=== PATIENT | male | born 1985 ===

== ENCOUNTER 2022-06-25 23:34 | Inpatient (IN) ==
[2022-06-25] MEDS ORDERED: PIPERACILLIN/TAZOBACTAM 3,375 MG in SODIUM CHLORIDE 0.9% 100 ML IV STA (23:46)
[2022-06-25] MEDS ORDERED: ONDANSETRON 4 MG/2 ML VIAL IV PRN (23:50)
[2022-06-26] MEDS ORDERED: SODIUM CHLORIDE 0.9% 1,000 ML IV STA (00:02)
[2022-06-26] MEDS ORDERED: HYDROmorphone 1 MG/1 ML SYRINGE IV STA (00:02)
[2022-06-26] MEDS ORDERED: ONDANSETRON 4 MG/2 ML VIAL IV STA (00:02)
[2022-06-26] MEDS: DEXTROSE 5% NACL 0.45% 1,000 ML IV SCH ×2 (01:19→07:41)
[2022-06-26] MEDS: MORPHINE 2 MG/1 ML SYRINGE IV PRN ×3 (02:17→11:54)
[2022-06-26 06:19] LABS: Basophils % 0.2 % (0.0-0.8); Hematocrit 41.3 VOL% (42.0-52.0); Hemoglobin 14.1 GM/DL (14.0-18.0); Immature Granulocytes % 0.7 %; Immature Granulocytes Absolute 0.13 #; Lymphocytes # 1.4 10*3/uL (1.4-4.0); Lymphocytes % 7.4 % (21.2-54.2); Mean Corpuscular HGB Conc 34.1 GM/DL (32-36); Mean Corpuscular Volume 101.5 FL (87-102); Mean Platelet Volume 11.1 FL (9.6-12.0); Monocytes # 0.6 10*3/uL (0.11-0.8); Monocytes % 3.4 % (1.7-12.7); Neutrophils % 88.3 % (38.7-73.9); Platelet Count 110 T/CUMM (130-400); Red Blood Count 4.07 MC/CUMM (3.8-5.5); Red Cell Distribution Width 11.9 % (9.3-17.3); White Blood Count 18.6 T/CUMM (4-12)
[2022-06-26 06:43] LABS: Albumin 2.8 G/DL (3.4-5.0); Bilirubin,Total 1.3 MG/DL (0.20-1.00); Calcium 8.3 MG/DL (8.5-10.1); Osmolality,Calculated 267.1 MOS/KG (273-304); Potassium 3.4 MMOL/L (3.5-5.1); Total Protein 6.8 G/DL (6.4-8.2)
[2022-06-26] MEDS: PIPERACILLIN/TAZOBACTAM 3,375 MG in SODIUM CHLORIDE 0.9% 100 ML IV SCH ×3 (07:21→23:27)
[2022-06-26] MEDS ORDERED: PANTOPRAZOLE 40 MG VIAL IV SCH (09:00)
[2022-06-26] MEDS ORDERED: fentaNYL 100 MCG/2 ML VIAL ONE (12:54)
[2022-06-26] MEDS ORDERED: MIDAZOLAM 2 MG/2 ML VIAL ONE (12:54)
[2022-06-26] MEDS ORDERED: LIDOCAINE 2%/EPI 20 ML VIAL ONE (13:29)
[2022-06-26] MEDS ORDERED: BUPIVACAINE MPF 0.25% 10 ML VIAL ONE (13:29)
[2022-06-26] MEDS ORDERED: ONDANSETRON 4 MG/2 ML VIAL ONE (13:46)
[2022-06-26] MEDS ORDERED: SEVOFLURANE 1 UNIT/15 MINUTE INH ONE (13:46)
[2022-06-26] MEDS ORDERED: propofoL 200 MG/20 ML VIAL IV ONE (13:46)
[2022-06-26] MEDS ORDERED: DEXAMETHASONE 4 MG/1 ML VIAL ONE (13:46)
[2022-06-26] MEDS ORDERED: LIDOCAINE 2% 5 ML VIAL ONE (13:46)
[2022-06-26] MEDS ORDERED: ROCURONIUM 50 MG/5 ML VIAL IV ONE (13:46)
[2022-06-26] MEDS ORDERED: ACETAMINOPHEN INJ 1,000 MG/100 ML VIAL IV ONE ×2 (13:46→13:59)
[2022-06-26] MEDS ORDERED: SUCCINYLCHOLINE 200 MG/10 ML VIAL ONE (13:46)
[2022-06-26] MEDS ORDERED: LACTATED RINGERS 1,000 ML IV ONE (13:59)
[2022-06-26] MEDS ORDERED: KETOROLAC 30 MG/1 ML VIAL ONE (13:59)
[2022-06-26] MEDS ORDERED: GLYCOPYRROLATE 0.4 MG/2 ML VIAL ONE (14:08)
[2022-06-26] MEDS ORDERED: NEOSTIGMINE 10 MG/10 ML VIAL ONE (14:08)
[2022-06-26] MEDS ORDERED: ACETAMINOPHEN 325 MG TABLET PO PRN (14:18)
[2022-06-26] MEDS ORDERED: HYDROmorphone 1 MG/1 ML SYRINGE IV PRN ×3 (14:18→14:57)
[2022-06-26] MEDS ORDERED: ONDANSETRON 4 MG/2 ML VIAL IV PRN ×2 (14:18→14:57)
[2022-06-26] MEDS ORDERED: KETOROLAC 15 MG/1 ML VIAL IV PRN (14:18)
[2022-06-26] MEDS ORDERED: HYDROmorphone 1 MG/1 ML SYRINGE ONE (14:18)
[2022-06-26] MEDS ORDERED: TISSUE ADHESIVE 1 EACH APPLICATOR TOP ONE (14:21)
[2022-06-27 04:42] LABS: Basophils % 0.1 % (0.0-0.8); Hematocrit 35.8 VOL% (42.0-52.0); Immature Granulocytes % 1.4 %; Immature Granulocytes Absolute 0.24 #; Lymphocytes # 0.9 10*3/uL (1.4-4.0); Lymphocytes % 5.4 % (21.2-54.2); Mean Corpuscular HGB Conc 33.5 GM/DL (32-36); Mean Corpuscular Volume 103.5 FL (87-102); Monocytes # 0.9 10*3/uL (0.11-0.8); Monocytes % 5.4 % (1.7-12.7); Neutrophils % 87.7 % (38.7-73.9); Platelet Count 85 T/CUMM (130-400); Red Blood Count 3.46 MC/CUMM (3.8-5.5); Red Cell Distribution Width 11.9 % (9.3-17.3); White Blood Count 16.8 T/CUMM (4-12)
[2022-06-27] MEDS: LACTATED RINGERS 1,000 ML IV SCH ×4 (04:50→16:37)
[2022-06-27 05:04] LABS: Platelet Estimate Decreased
[2022-06-27 05:05] LABS: Albumin 2.6 G/DL (3.4-5.0); Bilirubin,Total 0.6 MG/DL (0.20-1.00); Calcium 8.3 MG/DL (8.5-10.1); Osmolality,Calculated 276.5 MOS/KG (273-304); Potassium 3.7 MMOL/L (3.5-5.1); Total Protein 6.1 G/DL (6.4-8.2)
[2022-06-27] MEDS: PANTOPRAZOLE 40 MG TABLET PO SCH (08:40)
[2022-06-27] MEDS: ENOXAPARIN 40 MG/0.4 ML SYRINGE SUBCUT SCH ×2 (09:41→10:54)
[2022-06-27] MEDS: CIPROFLOXACIN INJ 400 MG/200 ML PREMIX IV SCH ×2 (09:48→21:17)
[2022-06-27] MEDS: PIPERACILLIN/TAZOBACTAM 3,375 MG in SODIUM CHLORIDE 0.9% 100 ML IV SCH (10:01)
[2022-06-27] MEDS: metroNIDAZOLE INJ 500 MG/100 ML PREMIX IV SCH ×2 (10:54→17:37)
[2022-06-28] MEDS: LACTATED RINGERS 1,000 ML IV SCH ×3 (00:29→17:44)
[2022-06-28] MEDS: metroNIDAZOLE INJ 500 MG/100 ML PREMIX IV SCH ×3 (02:43→17:32)
[2022-06-28 05:31] LABS: Basophils % 0.3 % (0.0-0.8); Eosinophils # 0.1 10*3/uL (0.0-0.87); Eosinophils % 0.8 % (0.00-10.9); Hematocrit 36.1 VOL% (42.0-52.0); Hemoglobin 11.9 GM/DL (14.0-18.0); Immature Granulocytes % 0.6 %; Immature Granulocytes Absolute 0.05 #; Lymphocytes # 1.8 10*3/uL (1.4-4.0); Lymphocytes % 22.6 % (21.2-54.2); Mean Corpuscular Volume 103.4 FL (87-102); Mean Platelet Volume 10.9 FL (9.6-12.0); Monocytes % 13.1 % (1.7-12.7); Neutrophils % 62.6 % (38.7-73.9); Platelet Count 114 T/CUMM (130-400); Red Blood Count 3.49 MC/CUMM (3.8-5.5); White Blood Count 7.8 T/CUMM (4-12)
[2022-06-28 05:49] LABS: Albumin 2.6 G/DL (3.4-5.0); Bilirubin,Total 0.4 MG/DL (0.20-1.00); Calcium 8.2 MG/DL (8.5-10.1); Osmolality,Calculated 280.1 MOS/KG (273-304); Potassium 3.5 MMOL/L (3.5-5.1); Total Protein 6.1 G/DL (6.4-8.2)
[2022-06-28] MEDS: PANTOPRAZOLE 40 MG TABLET PO SCH (09:16)
[2022-06-28] MEDS: CIPROFLOXACIN INJ 400 MG/200 ML PREMIX IV SCH ×2 (09:16→21:18)
[2022-06-28] MEDS: ENOXAPARIN 40 MG/0.4 ML SYRINGE SUBCUT SCH (09:16)
[2022-06-29] MEDS: LACTATED RINGERS 1,000 ML IV SCH ×2 (00:47→12:28)
[2022-06-29] MEDS: metroNIDAZOLE INJ 500 MG/100 ML PREMIX IV SCH ×2 (02:36→12:28)
[2022-06-29] MEDS: PANTOPRAZOLE 40 MG TABLET PO SCH (08:34)
[2022-06-29] MEDS: ENOXAPARIN 40 MG/0.4 ML SYRINGE SUBCUT SCH (08:34)
[2022-06-29] MEDS: CIPROFLOXACIN INJ 400 MG/200 ML PREMIX IV SCH (10:00)
[2022-06-29 11:31] VITALS: BP 119/70
== END 2022-06-29 12:20 | disposition home or self-care (01) | DRG 853 ==
LOC: EDUNIT# → N.3E 23:34 → N.ED 23:34 → N.3E 06-26 00:40
PROVIDERS: ADMIT Surgery; ATTEND Surgery